=== PATIENT | male | born 1965 | race Caucasian/White ===

== ENCOUNTER → 2024-06-19 07:02 | Outpatient (REF) | payer OTHER, SELFPAY | LOC: RCS 07:02 | PROVIDERS: ATTENDING PHYSICIAN Internal Medicine Cardiovascular Disease; FAMILY PHYSICIAN Family Medicine | DX: I49.3 Ventricular premature depolarization (principal); I45.10 Unspecified right bundle-branch block; R00.2 Palpitations | CPT/HCPCS: 93306 ==

== ENCOUNTER → 2024-06-26 08:07 | Outpatient (REF) | payer OTHER, SELFPAY | LOC: RCS 08:07 | PROVIDERS: ATTENDING PHYSICIAN Internal Medicine Cardiovascular Disease; FAMILY PHYSICIAN Family Medicine | DX: I49.3 Ventricular premature depolarization (principal); I45.10 Unspecified right bundle-branch block; R00.2 Palpitations | CPT/HCPCS: 93017 ==